=== PATIENT | male | born 1980 | race Two or more races ===

== ENCOUNTER 2018-09-03 17:22 | Emergency (ER) | payer MEDICAID ==
--- NOTE | 2018-09-03 18:35 | ED Physician Chart ---
ED Chief Complaint/HPI - Patient Information Date Seen:: 09/03/18 Time Seen:: 18:20 Chief Complaint:: headache and cough History of Present Illness:: Patient has had a headache and cough productive of yellow sputum for the last 2 days. No vomiting or diarrhea. Patient did not receive influenza vaccination this season Allergies:: Allergies Allergy/AdvReac Type Severity Reaction Status Date / Time No Known Allergies Allergy Verified 09/03/18 17:35 Vitals:: Vital Signs - 8 hr 09/03/18 17:30 Temp 97.8 F HR 87 RR 18 BP 125/71 O2 Sat % 97 Historian:: Patient Review:: Nurse's Note Reviewed ED Review of Systems - Review of Systems General/Constitutional: No fever, No chills Skin: No skin lesions Head: No headache Eyes: No loss of vision ENT: No earache Neck: No neck pain, No swelling Cardio Vascular: No chest pain Pulmonary: No SOB GI: No nausea, No vomiting, No diarrhea G/U: No dysuria Musculoskeletal: No bone or joint pain Endocrine: No polyuria, No polydipsia Psychiatric: No prior psych history Hematopoietic: No bruising Allergic/Immuno: No urticaria Neurological: No syncope, No focal symptoms ED Past Medical History - Past Medical History Past Medical History: No significant medical hx Family History: None Social History: Non Smoker, No Alcohol Surgical History: None Psychiatricy History: None Medication: None Family Medical History - Family Member Mother History Unknown: Yes ED Physical Exam - Physical Examination General/Constitutional: Awake, Well-developed, well-nourished, Alert Other Gen/Cons comments:: Mild distress; patient appears uncomfortable Head: Atraumatic Eyes: Lids, conjuctiva normal, PERRL Skin: Nl inspection, No rash, No skin lesions, No ecchymosis, Well hydrated, No lymphadenopathy ENMT: External ears, nose nl, TM canals nl, Nasal exam nl, Tonsils nl (4/4 dental plaque) Other ENMT comments:: Diffuse 1.5 out of 4 erythema of tonsils and pharynx without tonsillar exudate Neck: No nuchal rigidity Respiratory: Nl effort/Exclusion, No Wheeze/Rhonchi/Rales Cardio Vascular: RRR, No murmur, gallop, rubs, NL S1 S2 GI: No tenderness/rebounding/guarding, No organomegaly, No hernia, Normal BS's, Nondistended, No mass/bruits : No CVA tenderness Other Extremities comments:: Clubbing of the fingernails Neuro/Psych: No focal deficits Misc: No paraspinal tenderness ED Labs/Radiology/EKG Results - Lab Results Results: Laboratory Results Influenza A (Rapid) POS FOR INF A H 09/03/18 18:30 Influenza B (Rapid) NEG FOR INF B 09/03/18 18:30 ED Assessment - Assessment General Assessment: Strongly urged patient and his family which includes his and 2 small children to get influenza vaccination every year end of March the beginning of April. I also told the patient to stay away from his children as influenza A is very contagious. ED Septic Shock - . Is Septic Shock (SBP<90, OR Lactate>4 mmol\L) present?: No - <6hrs of presentation: Vital Signs: Vital Signs - 8 hr 09/03/18 17:30 Temp 97.8 F HR 87 RR 18 BP 125/71 O2 Sat % 97 ED Reassessment (Disposition) - Reassessment Reassessment Condition:: Unchanged - Diagnosis Diagnosis:: Influenza A - Aftercare/Follow up Instructions Aftercare/Follow-Up Instructions:: Refer to Discharge Instructions - Patient Disposition Discharge/Transfer:: Home Condition at Disposition:: Stable, Unchanged
[2018-09-03 18:57] LABS: INF A SCREEN POS FOR INF A; INF B SCREEN NEG FOR INF B
[2018-09-03] MEDS ORDERED: OSELTAMIVIR PHOSPHATE 75 MG CAP PO SCH (19:15)
== END 2018-09-03 19:31 | disposition home or self-care (01) ==
LOC: ER 17:22
DX: J10.1 Influenza due to other identified influenza virus with other respiratory manifestations (principal)
CPT/HCPCS: 87804-TC; Z7502